=== PATIENT | male | born 1970 | race Caucasian/White ===

== ENCOUNTER → 2023-08-18 06:15 | Day surgery (SDC) | payer OTHER, SELFPAY ==
[2023-08-18 07:31] LABS: Glucose - Point of Care 81 mg/dl (70-99)
== END ==
LOC: GI 06:15
PROVIDERS: ATTENDING PHYSICIAN Internal Medicine Gastroenterology
DX: Z12.11 Encounter for screening for malignant neoplasm of colon (principal); K57.30 Diverticulosis of large intestine without perforation or abscess without bleeding; K64.8 Other hemorrhoids
CPT/HCPCS: G0105; 82962